=== PATIENT | female | born 1970 | race Caucasian/White ===

== ENCOUNTER 2017-01-30 10:35 | Emergency (ER) | payer MEDICAID ==
[~2017-01-30] VITALS: Ht 152.4 cm; Wt 61.0 kg
[2017-01-30 10:37] VITALS: Ht 152.4 cm; Wt 61.0 kg
[2017-01-30] MEDS ORDERED: KETOROLAC 30 MG INJ IM STA (12:21)
[2017-01-30 12:35] LABS: URINE BLOOD (Dip) POC Negative (NEGATIVE)
--- NOTE | 2017-01-30 13:49 | RADRPT ---
PROCEDURE: XR Lumbar Spine 3 Views. CLINICAL INDICATION: Low back pain. TECHNIQUE: Lumbar spine study including AP, lateral and coned L5-S1 views was performed. COMPARISON: No prior studies are available for comparison. FINDINGS: Lumbar spine demonstrates a normal lordosis. No fractures or destructive bony lesions are observed. Moderate intervertebral disc space narrowing is identified from T10-L1. The facet joints are unre markable. Soft tissues surrounding the spine appear normal. IMPRESSION: Moderate degenerative disc disease from T10-L1. If further characterization is needed CT or MRI could be helpful. If there is high clinical suspicion for traumatic injury, further evaluation with CT should be consi dered. RPTAT: AA .Tr Olvera MD, Date Time Electronically viewed and signed by .Tr Olvera MD, on 01/30/2017 13:49 .P/
--- NOTE | 2017-01-30 13:51 | RADRPT ---
PROCEDURE: XR Thoracic Spine. CLINICAL INDICATION: Back pain. TECHNIQUE: Thoracic spine study including AP, swimmers and lateral views was performed. COMPARISON: No prior studies are available for comparison. FINDINGS: Thoracic spine demonstrates a normal kyphosis . Minimal scoliosis convex to the left is seen in the lower thoracic spine. No fractures or destructive bony lesions are observed. Mild to moderate inte rvertebral disc space narrowing is identified in the lower thoracic spine. Soft tissues surrounding the spine appear normal. IMPRESSION: Minimal scoliosis. This could be positional in nature. Mild to moderate degenerative disc disease in the lower thoracic spine. If further characterization is needed CT or MRI could be helpful. If there is high clinical suspicion for traumatic injury, further evaluation with CT should be consi dered. RPTAT: AA .Tr Olvera MD, Date Time Electronically viewed and signed by .Tr Olvera MD, on 01/30/2017 13:51 .P/
[2017-01-30] MEDS ORDERED: TRAM50TA2 PO (14:11)
[2017-01-30] MEDS ORDERED: ACET500C5 PO (14:11)
[2017-01-30] MEDS ORDERED: INSULIN LISPRO 100 UNIT/ML VIAL SC STA (14:20)
--- NOTE | 2017-01-30 14:20 | ERD ---
ER Documentation Chief Complaint Date/Time DATE: 01/30/17 TIME: 14:14 Chief Complaint MID BACK SHARP PAIN X 1 MONTH HPI Patient is a 46-year-old female who presents to the emergency department for concerns of left-sided mid-upper back pain 1 month. Patient states the pain is sharp in nature. Patient denies any falls or trauma. Patient states initially pain was episodic however now it has become constant. Patient denies any dysuria, frequency, urgency, hematuria, fever, chills or LOC. Patient denies any urinary incontinence or stool incontinence. Patient denies taking any medication for symptoms. Patient is able to ambulate without any difficulty. ROS All systems reviewed and are negative except as per history of present illness. Medications Home Meds Active Scripts Acetaminophen* (Tylophen*) 500 Mg Capsule, 1 CAP PO Q6H Y for PAIN AND OR ELEVATED TEMP, #20 CAP Prov:LEILANI JONES PA-C 01/30/17 Tramadol HCl (Tramadol HCl) 50 Mg Tablet, 50 MG PO Q4 Y for PAIN, #15 TAB Prov:LEILANI JONES PA-C 01/30/17 Allergies Allergies: Coded Allergies: No Known Allergy (Unverified , 01/30/17) PMhx/Soc Medical and Surgical Hx: pt denies Medical Hx, pt denies Surgical Hx Hx Alcohol Use: No Hx Substance Use: No Hx Tobacco Use: No Smoking Status: Never smoker Physical Exam Vitals Vital Signs Date Time Temp Pulse Resp B/P Pulse Ox O2 Delivery O2 Flow Rate FiO2 01/30/17 10:37 98.0 85 18 126/67 98 Physical Exam femaleGENERAL: Well-developed, well-nourished female. Appears in no acute distress. HEAD: Normocephalic, atraumatic. EYES: Pupils are equally reactive bilaterally. EOMs grossly intact. No conjunctival erythema. ENT: Moist mucous membranes. No uvula deviation. No kissing tonsils. NECK: Supple. No meningismus. Normal range of motion of the neck. Nontender to palpation of the cervical spine. LUNG: Clear to auscultation bilaterally. No rhonchi, wheezing, rales or coarse breath sounds. HEART: Regular rate and rhythm. No murmurs, rubs or gallops. ABDOMEN: Soft, nontender, and nondistended. Positive bowel sounds in all four quadrants. No rebound tenderness, no guarding. (-) McBurney's point tenderness. No CVA tenderness. BACK: No midline tenderness. Tender to palpation in the left thoracic and lumbar paraspinalis muscles. Negative straight leg raise bilaterally EXTREMITIES: Equal pulses bilaterally. No peripheral clubbing, cyanosis or edema. No unilateral leg swelling. NEUROLOGIC: Alert and oriented. Moving all four extremities without any difficulty. Normal speech. Steady gait. SKIN: Normal color. Warm and dry. No rashes or lesions. Results 24 hrs Laboratory Tests Test 01/30/17 12:42 01/30/17 14:16 01/30/17 15:18 Bedside Urine pH (LAB) 5.5 Bedside Urine Protein (LAB) Negative Bedside Urine Glucose (UA) 0.50% Bedside Urine Ketones (LAB) 1+ Bedside Urine Blood Negative Bedside Urine Nitrite (LAB) Negative Bedside Urine Leukocyte Esterase (L Negative Bedside Glucose 388mg/dL 289mg/dL Current Medications Medications (Trade) Dose Ordered Sig/Quirino Route PRN Reason Start Time Stop Time Status Last Admin Dose Admin Ketorolac Tromethamine (Toradol) 30 mg ONCE STAT IM 01/30/17 12:21 01/30/17 12:22 DC 01/30/17 12:39 Insulin Human Lispro (Humalog) 6 unit ONCE STAT SC 01/30/17 14:20 01/30/17 14:21 DC 01/30/17 14:28 Procedures/MDM ED COURSE: The patient was stable throughout ED course. I kept the patient and/or family informed of laboratory and diagnostic imaging results throughout the ED course. DIAGNOSTIC IMAGING: Read by radiologist. Patient: REBA CRUZ : 1970 Age: 46 Sex: F [id number] DOS: 01/30/17 1221 Ordering MD: LEILANI JONES PA-C Location: [facility] Room/Bed: PROCEDURE: XR Lumbar Spine 3 Views. CLINICAL INDICATION: Low back pain. TECHNIQUE: Lumbar spine study including AP, lateral and coned L5-S1 views was performed. COMPARISON: No prior studies are available for comparison. FINDINGS: Lumbar spine demonstrates a normal lordosis. No fractures or destructive bony lesions are observed. Moderate intervertebral disc space narrowing is identified from T10-L1. The facet joints are unremarkable. Soft tissues surrounding the spine appear normal. IMPRESSION: Moderate degenerative disc disease from T10-L1. If further characterization is needed CT or MRI could be helpful. If there is high clinical suspicion for traumatic injury, further evaluation with CT should be considered. RPTAT: AA .Tr Olvera MD, MD Date Time Electronically viewed and signed by .Tr Olvera MD, MD on 01/30/2017 13:49 .P/ CC: LEILANI JONES PA-C Patient: REBA CRUZ : 1970 Age: 46 Sex: F MR #: [id number] DOS: 01/30/17 1221 Ordering MD: LEILANI JONES PA-C Location: [facility] Room/Bed: PROCEDURE: XR Thoracic Spine. CLINICAL INDICATION: Back pain. TECHNIQUE: Thoracic spine study including AP, swimmers and lateral views was performed. COMPARISON: No prior studies are available for comparison. FINDINGS: Thoracic spine demonstrates a normal kyphosis . Minimal scoliosis convex to the left is seen in the lower thoracic spine. No fractures or destructive bony lesions are observed. Mild to moderate intervertebral disc space narrowing is identified in the lower thoracic spine. Soft tissues surrounding the spine appear normal. IMPRESSION: Minimal scoliosis. This could be positional in nature. Mild to moderate degenerative disc disease in the lower thoracic spine. If further characterization is needed CT or MRI could be helpful. If there is high clinical suspicion for traumatic injury, further evaluation with CT should be considered. RPTAT: AA .Tr Olvera MD, MD Date Time Electronically viewed and signed by .Tr Olvera MD, MD on 01/30/2017 13:51 .P/ CC: LEILANI JONES PA-C PROCEDURES: None. MEDICATIONS GIVEN: Toradol, Lispro Patient tolerated medication well with no adverse reactions. MEDICAL DECISION MAKING: Patient is a 46-year-old female who presents to the emergency department for concerns of left-sided mid-upper back pain 1 month. Vital signs were reviewed. Patient was afebrile. Patient denied any saddle anesthesia, urinary incontinence , bowel incontinence, falls or recent trauma. Xray imaging was obtained. Thoracic series showed Mild to moderate degenerative disc disease in the lower thoracic spine. Lumbar series showed Moderate degenerative disc disease from T10-L1. Urine preg was negative. Urine dip was obtained and showed 1+ ketones and + glucose. Patient denied current hx of DM, however did admit to gestational DM greater than 15 years ago. Accucheck was obtained given findings of glucose and ketones in urine. BS was noted to be 288. Patient denied any headache, CP, SOB, abdominal pain, nausea or vomiting. I discussed these findings with my supervising physician Dr. Villela who advised me to give the patient 6 units of Lispro. Patient's glucose noted to be down to 289 prior to discharge. Low suspicion for DKA or organ failure at this time. Given these findings, the patients presentation is most consistent with degenerative changes of the spine and hyperglycemia. I have a much lower clinical concern for cauda equine syndrome, spinal fractures, epidural abscess, spinal metastases, osteomyelitis, aortic dissection, sciatica,UTI, pyelonephritis or nephrolithiasis. PRESCRIPTIONS: Tylenol, tramadol DISCHARGE: At this time, patient is stable for discharge and outpatient management. RICE therapy and ROM exercises were advised to avoid stiffness. I have instructed the patient to follow-up with his/her primary care physician in 1-2 days. I have discussed with the patient the possibility of needing to see an airways control specialist for further workup and imaging if the pain persists. I have instructed the patient to promptly return to the ER for any new or worsening symptoms including increased pain, swelling, warmth, urinary incontinence, stool incontinence, weakness or numbness. The patient and/or family expressed understanding of and agreement with this plan. All questions were answered. Home care instructions were provided. Patients random blood sugar level was elevated (>140), but appears stable without evidence of DKA or end organ failure. I had discussion with the patient about the risk of diabetes. I have advised the patient to follow up with his/her primary care physician for outpatient monitoring and treatment for elevated blood sugar levels in 2-3 days. I have instructed the patient to return to the ER for any new or worsening symptoms including chest pain, shortness of breath, headache, confusion, abdominal pain, nausea, vomiting, weakness or LOC. Departure Diagnosis: Primary Impression: Degenerative disc disease Spinal region: thoracolumbar Qualified Code: M51.35 - Degeneration of intervertebral disc of thoracolumbar region Additional Impression: Back pain Back pain location: back pain in unspecified location Chronicity: unspecified Back pain laterality: unspecified Qualified Code: M54.9 - Back pain, unspecified back location, unspecified back pain laterality, unspecified chronicity Condition: Stable Patient Instructions: Back Pain (Acute Or Chronic) Referrals: COMM[facility]ITY CLINICS YOU HAVE RECEIVED A MEDICAL SCREENING EXAM AND THE RESULTS INDICATE THAT YOU DO NOT HAVE A CONDITION THAT REQUIRES URGENT TREATMENT IN THE EMERGENCY DEPARTMENT. FURTHER EVALUATION AND TREATMENT OF YOUR CONDITION CAN WAIT UNTIL YOU ARE SEEN IN YOUR DOCTORS OFFICE WITHIN THE NEXT 1-2 DAYS. IT IS YOUR RESPONSIBILITY TO MAKE AN APPOINTMENT FOR FOLOW-UP CARE. IF YOU HAVE A PRIMARY DOCTOR --you should call your primary doctor and schedule an appointment IF YOU DO NOT HAVE A PRIMARY DOCTOR YOU CAN CALL OUR PHYSICIAN REFERRAL HOTLINE AT IF YOU CAN NOT AFFORD TO SEE A PHYSICIAN YOU CAN CHOSE FROM THE FOLLOWING [facility] [address] [facility]. [facility] [address] [facility]. [facility] [address] [facility] [address] [facility] [address] [facility]. [facility]. [address] [facility]. [facility] YOU HAVE RECEIVED A MEDICAL SCREENING EXAM AND THE RESULTS INDICATE THAT YOU DO NOT HAVE A CONDITION THAT REQUIRES URGENT TREATMENT IN THE EMERGENCY DEPARTMENT. FURTHER EVALUATION AND TREATMENT OF YOUR CONDITION CAN WAIT UNTIL YOU ARE SEEN IN YOUR DOCTORS OFFICE WITHIN THE NEXT 1-2 DAYS. IT IS YOUR RESPONSIBILITY TO MAKE AN APPOINTMENT FOR FOLOW-UP CARE. IF YOU HAVE A PRIMARY DOCTOR --you should call your primary doctor and schedule and appointment IF YOU DO NOT HAVE A PRIMARY DOCTOR YOU CAN CALL OUR PHYSICIAN REFERRAL HOTLINE AT . IF YOU CAN NOT AFFORD TO SEE A PHYSICIAN YOU CAN CHOSE FROM THE FOLLOWING [facility] INSTITUTIONS: [facility] [address] [place] [address] [facility] [address] [place] [address] [facility] [address] [place] [address] [facility] Hours: Mon-Fri 9:00 AM - 5:00 PM Additional Instructions: Call your primary care doctor TOMORROW for an appointment during the next 1-2 days.See the doctor sooner or return here if your condition worsens before your appointment time. LEILANI JONES PA-C Jan 30, 2017 14:20
== END 2017-01-30 15:43 | disposition home or self-care (01) ==
LOC: FTE 10:35
DX: M51.35 Other intervertebral disc degeneration, thoracolumbar region (principal); R73.9 Hyperglycemia, unspecified
CPT/HCPCS: 72072; 72100; 81003; 82962; 96372; J1815; J1885; Z7502

== ENCOUNTER 2017-06-16 12:39 | Emergency (ER) | END 2017-06-16 16:34 | disposition home or self-care (01) ==

== ENCOUNTER 2018-09-10 11:31 | Emergency (ER) | payer MEDICAID ==
[~2018-09-10] VITALS: Ht 152.4 cm; Wt 55.4 kg
[~2018-09-10 11:31] MED LIST: ACET1TAB40 PO; ACET500C5 PO; DOXY100T20 PO; TRAM50TA2 PO
[2018-09-10 12:20] VITALS: BP 120/64; PULSE 75; RESP 16; Ht 152.4 cm; Wt 55.4 kg
[2018-09-10] MEDS ORDERED: METOCLOPRAMIDE 10 MG INJ IV STA (12:45)
[2018-09-10] MEDS ORDERED: KETOROLAC 30 MG INJ IV STA (12:45)
[2018-09-10] MEDS ORDERED: DIPHENHYDRAMINE 50 MG INJ IV STA (12:45)
[2018-09-10] MEDS ORDERED: SOD CHLORIDE 0.9% 1,000 ML IV STA (12:45)
[2018-09-10] MEDS ORDERED: BUTA1CAP38 PO (13:48)
--- NOTE | 2018-09-10 15:27 | ERD ---
ER Documentation Chief Complaint Chief Complaint HEADACHE WITH NAUSEA AND DIZZINESS HPI 48-year-old female presenting with headache and dizziness. Patient has some nausea but no vomiting. Denies visual changes. Denies any chest pain or shortness of breath. Denies any fevers. Has not taken medications. She states her headache is all over and has been persistent over the last few days. Medical history is diabetes on metformin and glipizide. NKDA. Surgical history cholecystectomy. Social history denies ROS All systems reviewed and are negative except as per history of present illness. Medications Home Meds Active Scripts Fkkkvwukzy-Jyfspwxeshxpv-Jceudfgv* (Fioricet*) 50-300-40 Mg Capsule, 1 CAP PO Q4H PRN for HEADACHE, #30 CAP Prov:JOEL KELLER PA-C 09/10/18 Doxycycline Hyclate* (Doxycycline Hyclate*) 100 Mg Tablet.dr, 100 MG PO BID for 7 Days, TAB Prov:HANNAH FELICIANO MD 06/16/17 Acetaminophen with Codeine (Acetaminophen-Cod #3 Tablet) 1 Each Tablet, 1 TAB PO Q6H PRN for PAIN, #7 TAB Prov:HANNAH FELICIANO MD 06/16/17 Acetaminophen* (Tylophen*) 500 Mg Capsule, 1 CAP PO Q6H PRN for PAIN AND OR ELEVATED TEMP, #20 CAP Prov:LEILANI JONES PA-C 01/30/17 Tramadol HCl (Tramadol HCl) 50 Mg Tablet, 50 MG PO Q4 PRN for PAIN, #15 TAB Prov:LEILANI JONES PA-C 01/30/17 Allergies Allergies: Coded Allergies: No Known Allergy (Unverified , 01/30/17) PMhx/Soc Medical and Surgical Hx: pt denies Medical Hx, pt denies Surgical Hx History of Surgery: No Anesthesia Reaction: No Hx Neurological Disorder: No Hx Respiratory Disorders: No Hx Cardiac Disorders: No Hx Psychiatric Problems: No Hx Miscellaneous Medical Probl: No Hx Alcohol Use: No Hx Substance Use: No Hx Tobacco Use: No FmHx Family History: No diabetes, No coronary disease, No other Physical Exam Vitals Vital Signs Date Temp Pulse Resp B/P (MAP) Pulse Ox O2 O2 Flow FiO2 Time Delivery Rate 09/10/18 98.7 75 16 120/64 99 12:20 (82) Physical Exam GENERAL: The patient is well-appearing, well-nourished, in no acute distress HEENT: Atraumatic. Conjunctivae are pink. Pupils equal, round, and reactive to light. There is no scleral icterus. Tympanic membranes clear bilaterally. Oropharynx clear. No nystagmus or photophobia. CHEST: Clear to auscultation bilaterally. There are no rales, wheezes or rhonchi. HEART: Regular rate and rhythm. No murmurs, clicks, rubs or gallops. EXTREMITIES: Equal pulses bilaterally. There is no peripheral clubbing, cyanosis or edema. No focal swelling or erythema. Full range of motion. Grossly neurovascularly intact. NEUROLOGIC: Alert and oriented. Cranial nerves II through XII intact. Motor strength in all 4 extremities with 5 out of 5 strength. Sensation grossly intact. Normal speech and gait. SKIN: There is no apparent rash or petechiae. The skin is warm and dry. Result Diagram: 09/10/18 1308 09/10/18 1308 Results 24 hrs Laboratory Tests Test 09/10/18 13:08 09/10/18 13:16 White Blood Count 8.1 10^3/ul Red Blood Count 5.30 10^6/ul Hemoglobin 15.3 g/dl Hematocrit 45.9 % Mean Corpuscular Volume 86.6 fl Mean Corpuscular Hemoglobin 28.9 pg Mean Corpuscular Hemoglobin Concent 33.3 g/dl Red Cell Distribution Width 12.3 % Platelet Count 232 10^3/UL Mean Platelet Volume 10.7 fl Immature Granulocytes % 0.200 % Neutrophils % 66.4 % Lymphocytes % 24.9 % Monocytes % 6.1 % Eosinophils % 1.9 % Basophils % 0.5 % Nucleated Red Blood Cells % 0.0 /100WBC Immature Granulocytes # 0.020 10^3/ul Neutrophils # 5.4 10^3/ul Lymphocytes # 2.0 10^3/ul Monocytes # 0.5 10^3/ul Eosinophils # 0.2 10^3/ul Basophils # 0.0 10^3/ul Nucleated Red Blood Cells # 0.0 10^3/ul Urine Color YELLOW Urine Clarity CLEAR Urine pH 5.0 Urine Specific [place] 1.012 Urine Ketones NEGATIVE mg/dL Urine Nitrite NEGATIVE mg/dL Urine Bilirubin NEGATIVE mg/dL Urine Urobilinogen NEGATIVE mg/dL Urine Leukocyte Esterase TRACE Marcela/ul Urine Microscopic RBC 2 /HPF Urine Microscopic WBC 1 /HPF Urine Squamous Epithelial Cells FEW /HPF Urine Mucus FEW /HPF Urine Hemoglobin 1+ mg/dL Urine Glucose 1+ mg/dL Urine Total Protein NEGATIVE mg/dl Sodium Level 140 mmol/L Potassium Level 3.5 mmol/L Chloride Level 99 mmol/L Carbon Dioxide Level 28 mmol/L Anion Gap 13 Blood Urea Nitrogen 20 mg/dl Creatinine 0.40 mg/dl Est Glomerular Filtrat Rate mL/min > 60 mL/min Glucose Level 208 mg/dl Calcium Level 9.7 mg/dl Total Bilirubin 0.5 mg/dl Direct Bilirubin 0.00 mg/dl Indirect Bilirubin 0.5 mg/dl Aspartate Amino Transf (AST/SGOT) 22 IU/L Alanine Aminotransferase (ALT/SGPT) 15 IU/L Alkaline Phosphatase 203 IU/L Total Protein 8.8 g/dl Albumin 4.6 g/dl Globulin 4.20 g/dl Albumin/Globulin Ratio 1.09 POC Beta HCG, Qualitative NEGATIVE Current Medications Medications Dose Sig/Quirino Start Time Status Last (Trade) Ordered Route PRN Stop Time Admin Dose Reason Admin Sodium 1,000 ml @ Q1H STAT 09/10/18 DC 09/10/18 Chloride 1,000 mls/hr IV 12:45 13:22 09/10/18 13:44 10 mg ONCE STAT 09/10/18 DC 09/10/18 Metoclopramid IV 12:45 13:21 e HCl 09/10/18 12:49 (Reglan) Ketorolac 30 mg ONCE STAT 09/10/18 DC 09/10/18 Tromethamine IV 12:45 13:22 (Toradol) 09/10/18 12:49 25 mg ONCE STAT 09/10/18 DC 09/10/18 Diphenhydrami IV 12:45 13:21 ne HCl 09/10/18 12:49 (Benadryl) Procedures/MDM ER course: 1 L normal saline given ED. Toradol Benadryl and Zofran given ED. MDM: 48-year-old female presenting with headache. Patient likely had headache secondary to tension I have low suspicion for cranial hemorrhage or neuro deficit. Patient symptoms improved after medication was given. Patient is told symptoms change or worsen to return immediately to the ER. All questions answered at discharge Departure Diagnosis: Primary Impression: Headache Condition: Stable Patient Instructions: Self-Care for Headaches Referrals: [facility] YOU HAVE RECEIVED A MEDICAL SCREENING EXAM AND THE RESULTS INDICATE THAT YOU DO NOT HAVE A CONDITION THAT REQUIRES URGENT TREATMENT IN THE EMERGENCY DEPARTMENT. FURTHER EVALUATION AND TREATMENT OF YOUR CONDITION CAN WAIT UNTIL YOU ARE SEEN IN YOUR DOCTORS OFFICE WITHIN THE NEXT 1-2 DAYS. IT IS YOUR RESPONSIBILITY TO MAKE AN APPOINTMENT FOR FOLOW-UP CARE. IF YOU HAVE A PRIMARY DOCTOR --you should call your primary doctor and schedule an appointment IF YOU DO NOT HAVE A PRIMARY DOCTOR YOU CAN CALL OUR PHYSICIAN REFERRAL HOTLINE AT IF YOU CAN NOT AFFORD TO SEE A PHYSICIAN YOU CAN CHOSE FROM THE FOLLOWING [facility] [address] [facility]. [facility] [address] [facility] [address] [facility] [address] [facility] [address] [facility]. [facility]. [address] Additional Instructions: FOLLOW UP WITH YOUR PRIMARY CARE PHYSICIAN TOMORROW.Return to this facility if you are not improving as expected. JOEL KELLER PA-C Sep 10, 2018 15:27
== END 2018-09-10 14:09 | disposition home or self-care (01) ==
LOC: FTE 11:31
DX: R51 Headache (principal); E11.9 Type 2 diabetes mellitus without complications; Z79.84 Long term (current) use of oral hypoglycemic drugs
CPT/HCPCS: 36415; 80053; 81001; 81025; 85025; 96361; 96374; 96375; J1200; J1885; J2765; J7030; Z7502

== ENCOUNTER 2018-12-08 20:20 | Emergency (ER) | payer MEDICAID ==
[~2018-12-08] VITALS: Ht 152.4 cm; Wt 56.5 kg
[~2018-12-08 20:20] MED LIST changes: +BUTA1CAP38 PO
[2018-12-08 20:22] VITALS: BP 140/61; PULSE 84; RESP 18; Ht 152.4 cm; Wt 56.5 kg
[2018-12-08] MEDS ORDERED: CEPH-443 PO (22:16)
[2018-12-08] MEDS ORDERED: ACET500C5 PO (22:16)
--- NOTE | 2018-12-08 22:20 | ERD ---
ER Documentation Chief Complaint Chief Complaint RIGHT THUMB PARONYCHIA X3DAYS; HX OF DM HPI 48-year-old female presenting to the ED for right thumb pain. It appears patient has a small ingrown nail on the right thumb.'s been going on for 3 days. Patient is afebrile. Patient has good full motor function in the extremity and states is only painful when she touches it. Patient denies any allergies to the patient's. Patient states the pain is about an 8 out of 10 ROS All systems reviewed and are negative except as per history of present illness. Medications Home Meds Active Scripts Acetaminophen* (Tylophen*) 500 Mg Capsule, 1 CAP PO Q6H PRN for PAIN AND OR ELEVATED TEMP, #20 CAP Prov:KRISTEN COOPER PA-C 12/08/18 Cephalexin* (Keflex*) 500 Mg Capsule, 500 MG PO TID for 5 Days, CAP Prov:KRISTEN COOPER PA-C 12/08/18 Klcuctwvpi-Tkzqxsdqzcuoj-Iphxduln* (Fioricet*) 50-300-40 Mg Capsule, 1 CAP PO Q4H PRN for HEADACHE, #30 CAP Prov:JOEL KELLER PA-C 09/10/18 Doxycycline Hyclate* (Doxycycline Hyclate*) 100 Mg Tablet.dr, 100 MG PO BID for 7 Days, TAB Prov:HANNAH FELICIANO MD 06/16/17 Acetaminophen with Codeine (Acetaminophen-Cod #3 Tablet) 1 Each Tablet, 1 TAB PO Q6H PRN for PAIN, #7 TAB Prov:HANNAH FELICIANO MD 06/16/17 Acetaminophen* (Tylophen*) 500 Mg Capsule, 1 CAP PO Q6H PRN for PAIN AND OR ELEVATED TEMP, #20 CAP Prov:LEILANI JONES PA-C 01/30/17 Tramadol HCl (Tramadol HCl) 50 Mg Tablet, 50 MG PO Q4 PRN for PAIN, #15 TAB Prov:LEILANI JONES PA-C 01/30/17 Allergies Allergies: Coded Allergies: No Known Allergy (Unverified , 01/30/17) PMhx/Soc History of Surgery: Yes (CHOLECYSTECTOMY) Anesthesia Reaction: No Hx Neurological Disorder: No Hx Respiratory Disorders: No Hx Cardiac Disorders: No Hx Psychiatric Problems: No Hx Miscellaneous Medical Probl: No Hx Alcohol Use: No Hx Substance Use: No Hx Tobacco Use: No FmHx Family History: No diabetes, No coronary disease, No other Physical Exam Vitals Vital Signs Date Temp Pulse Resp B/P (MAP) Pulse Ox O2 O2 Flow FiO2 Time Delivery Rate 12/08/18 97.0 84 18 140/61 98 20:22 (87) Physical Exam Resp: Clear to auscultation bilaterally Cardio: Regular rate and rhythm, no murmurs Abd: Soft, non tender, non distended. Normal bowel sounds Skin: No petechiae or rashes Back: No midline or flank tenderness Ext: Nonfluctuant lesion on right lateral aspect of thumb. No drainage no pus painful to palpation. Patient has good neurovascular exam in the extremity. Procedures/MDM Medical decision makin-year-old female presenting to the ED for right thumb pain x3 days. Physical exam revealed an ingrown fingernail on the right lateral aspect of her thumb. Patient denies any trauma. Patient denies any fever chills nausea vomiting. The patient has full range of motion and neurovascular exam was unremarkable. At this time I have low suspicion for compartment syndrome, fracture, dislocation. The patient is afebrile and the mass was nonfluctuant with no drainage. At this time there is no need to perform an I&D procedure. I instruct the patient we can treat her outpatient with antibiotics with follow-up with primary care. Patient feels comfortable with this. I offered the patient acetaminophen for pain in the ED but she did not want it. The patient had no further questions upon discharge and is in agreement the treatment plan Prescription for home: Keflex Acetaminophen I have discussed with the patient proper use and common side effects to expert with the medication . I advised the patient/family to speak with the pharmacist dispensing the medication to be advised of any potential drug interactions with other medication or supplements they may be taking. Discharge: At this time, patient is stable for discharge and outpatient management. I have instructed the patient to follow-up with his\her primary care physician in 1 to 2 days. I have discussed with the patient the possibility of needing to see a specialist for further work-up and imaging studies if symptoms persist. I have instructed the patient to promptly return to the ER for any new or worsening symptoms including increased pain, fever, nausea, vomiting, weakness or LOC. The patient and\or family expressed understanding of and agreement with this plan. All questions were answered. Home care instructions were provided. Disclaimer: Inadvertent spelling and grammatical errors are likely due to EHR\dictation software use and do not reflect on the overall quality of patient care. Also, please note that the electronic time recorded on the note does not necessarily reflect the actual time of the patient encounter. Departure Diagnosis: Primary Impression: Paronychia of finger of right hand Condition: Stable Patient Instructions: Paronychia Referrals: [facility] YOU HAVE RECEIVED A MEDICAL SCREENING EXAM AND THE RESULTS INDICATE THAT YOU DO NOT HAVE A CONDITION THAT REQUIRES URGENT TREATMENT IN THE EMERGENCY DEPARTMENT. FURTHER EVALUATION AND TREATMENT OF YOUR CONDITION CAN WAIT UNTIL YOU ARE SEEN IN YOUR DOCTORS OFFICE WITHIN THE NEXT 1-2 DAYS. IT IS YOUR RESPONSIBILITY TO MAKE AN APPOINTMENT FOR FOLOW-UP CARE. IF YOU HAVE A PRIMARY DOCTOR --you should call your primary doctor and schedule an appointment IF YOU DO NOT HAVE A PRIMARY DOCTOR YOU CAN CALL OUR PHYSICIAN REFERRAL HOTLINE AT IF YOU CAN NOT AFFORD TO SEE A PHYSICIAN YOU CAN CHOSE FROM THE FOLLOWING [facility] [address] [facility]. [facility] [address] [facility]. [facility] [address] [facility] [facility] [address] [facility] [facility] [address] [facility]. [facility]. [address] [facility]. [facility] YOU HAVE RECEIVED A MEDICAL SCREENING EXAM AND THE RESULTS INDICATE THAT YOU DO NOT HAVE A CONDITION THAT REQUIRES URGENT TREATMENT IN THE EMERGENCY DEPARTMENT. FURTHER EVALUATION AND TREATMENT OF YOUR CONDITION CAN WAIT UNTIL YOU ARE SEEN IN YOUR DOCTORS OFFICE WITHIN THE NEXT 1-2 DAYS. IT IS YOUR RESPONSIBILITY TO MAKE AN APPOINTMENT FOR FOLOW-UP CARE. IF YOU HAVE A PRIMARY DOCTOR --you should call your primary doctor and schedule and appointment IF YOU DO NOT HAVE A PRIMARY DOCTOR YOU CAN CALL OUR PHYSICIAN REFERRAL HOTLINE AT . IF YOU CAN NOT AFFORD TO SEE A PHYSICIAN YOU CAN CHOSE FROM THE FOLLOWING [facility] INSTITUTIONS: [facility] [address] [place] [address] [facility] [address] [place] [address] [facility] [address] [place] [address] Additional Instructions: Llame al doctor MAANA y kenji tessy RAFFI PARA DENTRO DE 1-2 ORO.Dgale a la secretaria que nosotros le instruimos hacer esta raffi.Avise o llame si baker condicin se empeora antes de la raffi. Regresa aqui si peor o no mejor. KRISTEN COOPER PA-C Dec 08, 2018 22:20
== END 2018-12-08 22:49 | disposition home or self-care (01) ==
LOC: FTE 20:20
DX: L03.011 Cellulitis of right finger (principal); E11.9 Type 2 diabetes mellitus without complications
CPT/HCPCS: 99283